=== PATIENT | female | born 1980 | race African-American/Black ===

== ENCOUNTER 2022-05-12 16:41 | Outpatient (CLI) | payer BC, SELFPAY ==
[2022-05-12 19:06] LABS: HIV 1/2 Ab P24 Ag Result Negative (Negative)
[2022-05-12 19:13] LABS: Hepatitis B Surface Antigen Negative (Negative)
[2022-05-12 19:30] LABS: Hepatitis C Virus Antibody Negative (Negative)
[2022-05-13 13:55] LABS: Rapid Plasma Reagin Non-Reactive (NonReactive)
== END 2022-05-12 16:42 | disposition home or self-care (01) ==
LOC: ANHLAB 16:43
PROVIDERS: PCP Obstetrics & Gynecology; Visit Provider Obstetrics & Gynecology
DX: Z20.2 Contact with and (suspected) exposure to infections with a predominantly sexual mode of transmission (principal)
CPT/HCPCS: 36415; 86592; 86703; 86803; 87340; G0432

== ENCOUNTER 2022-07-24 09:26 | Outpatient (CLI) | payer BC, SELFPAY ==
--- NOTE | ~2022-07-24 | MM_ITS ---
EXAMINATION: MM screening [facility] HISTORY: Screening TECHNIQUE: Craniocaudal and mediolateral oblique 3-D tomosynthesis images were obtained and synthetic 2-D images were generated. CAD analysis was submitted and interpreted. COMPARISON: No prior mammogram is available for comparison at this institution. BREAST PARENCHYMAL COMPOSITION: There are scattered areas of fibroglandular density. FINDINGS: There is no evidence of suspicious mass, calcification, or architectural distortion to sugg est malignancy in either breast. There has been no suspicious interval change. IMPRESSION: 1. No mammographic evidence of malignancy. 2. Recommend routine screening mammography in one year. BI-RADS Category 1: Negative Reviewed, dictated and finalized at location A.
== END 2022-07-24 09:27 | disposition home or self-care (01) ==
LOC: ANHIMG 09:28
PROVIDERS: PCP Obstetrics & Gynecology; Visit Provider Obstetrics & Gynecology
DX: Z12.31 Encounter for screening mammogram for malignant neoplasm of breast (principal)
CPT/HCPCS: 77063; 77067